=== PATIENT | female | born 1935 | race Asian ===

== ENCOUNTER 2025-01-25 08:05 | Day surgery (SDC) | payer MEDICARE, OTHER ==
[2025-01-24 12:56] LABS: Hematocrit 40.2 % (36.0-46.0); Hemoglobin 13.4 g/dL (12.2-16.2); Mean Corpuscular Hemoglobin 30.4 pg (28.0-32.0); Mean Corpuscular Volume 91.1 fL (80.0-100.0); Nucleated Red Blood Cells % 0.1 %
[2025-01-24 13:06] LABS: Chloride 106 mmol/L (98-107); Potassium 4.5 mmol/L (3.5-5.1); Sodium 143 mmol/L (136-145)
[2025-01-24 13:07] LABS: Anion Gap 11 (5-15); Carbon Dioxide 26 mmol/L (20-31)
[2025-01-24 13:08] LABS: Calcium 10.1 mg/dL (8.7-10.4)
[2025-01-24 13:13] LABS: BUN/Creatinine Ratio 16.8 (10.0-20.0); Blood Urea Nitrogen 18 mg/dL (9-23)
[2025-01-24 13:14] LABS: Glucose 128 mg/dL (74-106); INR 0.97 (0.9-1.15); Partial Thromboplastin Time 29.0 SEC (24.5-34.5); Prothrombin Time 10.3 sec (9.3-11.8)
[~2025-01-25] VITALS: Ht 147.3 cm; Wt 51.7 kg
[~2025-01-25 08:05] MED LIST: AMLO1TAB22 PO; METO25TA93 PO; PANT40TA2 PO; POM; PRE1T PO; TACR0.1O7 EX
[2025-01-25] MEDS: IOHEXOL 350 MG/ML 100ML IJ ONE (09:04)
[2025-01-25] MEDS: fentaNYL CITRATE 100 MCG/2 ML VL ONE (09:14)
[2025-01-25] MEDS: ANGIOMAX 250 MG VIAL IV ONE (09:14)
[2025-01-25] MEDS: LIDOCAINE 2%HCL (LOCAL ANESTH.) INJ 20ML MDV ONE (09:15)
[2025-01-25] MEDS: MIDAZOLAM HCL 2MG/2ML 2ml VIAL (1mg/ml) ONE (09:15)
[2025-01-25] MEDS: SODIUM CHL 0.9% 50 ML ONE (09:15)
[2025-01-25] MEDS: CLOPIDOGREL BISULFATE 75 MG TAB ONE (10:55)
[2025-01-25] MEDS ORDERED: ASPI-543 PO (11:28)
[2025-01-25] MEDS ORDERED: CLOP75TA28 PO (11:28)
--- NOTE | 2025-01-25 13:29 | DVHOP ---
DATE OF SURGERY: 01/25/2025 PROCEDURES TO BE PERFORMED: * Selective left and right coronary angiography, ventriculogram, right iliac angiography. * Thrombectomy of the left anterior descending artery with shockwave device together with angioplasty with stent placement with a 2.5 x 38 mm [place] Callaway stent into the proximal LAD. * FFR of the circumflex artery, which mounted to be 0.74. Right heart catheterization and patient was deferred at this time since the patient has significant coronary artery disease. After treating the coronary artery disease and managing it first, then we will do a right heart catheterization to see if the valve needs to be evaluated at a later date. Conscious sedation also given. DESCRIPTION OF PROCEDURE: The patient was prepped and draped in sterile condition. 1% Xylocaine was used to anesthetize the right groin. Using Cook needle, the right femoral artery was engaged. Using the Seldinger technique, a 6-Mongolian sheath in the right femoral artery. Using a 6-Mongolian JL4 catheter and a 6-Mongolian JR4 catheter, selective left and right coronary angiography was performed. Using a 6-Mongolian pigtail catheter, ventriculogram was done. Then, the 6-Mongolian diagnostic system was exchanged for a 6-Mongolian interventional system. Using XB 3.5 guide catheter, the left main was cannulated. Using a ChoicePT extra support wire, the LAD lesion was then crossed. It was then initially dilated using a 2.5 x 20 mm Euphora balloon. Then, a 2.5 x 12 mm shockwave thrombectomy catheter was used to dilate the entire length of the proximal LAD. Then, a 2.5 x 38 mm [place] Callaway stent was deployed at 18 atmospheres. There were no complications. The patient tolerated the procedure well. RESULTS: * Left main patent. * Left anterior descending artery had a proximal 90% severely calcified lesion, status post angioplasty with stent placement with less than 10% residual stenosis. Circumflex artery ostium has an 80% narrowing and the obtuse marginal too had a 90% narrowing as well. * Right coronary artery is patent. However, the posterior lateral branch of the RCA has a 90% narrowing. The circumflex and the posterior marginal branch of the RCA will be revascularized in a staged manner. The LAD has been revascularized with stent placement. We will continue to follow patient. Hai Cao MD SA/CLEVE TID: [id number] RECEIPT: [id number]
--- NOTE | 2025-01-25 13:34 | DVHHP ---
ADMIT DATE: 01/25/2025 HISTORY OF PRESENT ILLNESS: The patient is an 89-year-old with a history of increasing shortness of breath. The patient gets extremely tachypneic even walking to the mailbox. Echocardiogram shows the patient to have possible aortic valve stenosis and because of the presentation and because of the sudden onset of the symptoms, it is felt that the patient would benefit from having a left and right heart catheterization to determine whether the patient should need aortic valve replacement and even mitral valve evaluation. PAST MEDICAL HISTORY: She has no significant past medical history other than hypertension and hyperlipidemia. She denies any syncopal episode. Denies any history of MS in the past. Denies any coronary artery disease. SOCIAL HISTORY: No tobacco use. No alcohol use at this time. FAMILY HISTORY: Noncontributory. REVIEW OF SYSTEMS: Denies any fevers, chills, melena, or hematochezia. No history of CVA. No history of seizure disorder. No history of rheumatological disorder. No history of any trauma recently. No history of inflammatory bowel disease or irritable bowel syndrome. PHYSICAL EXAMINATION: VITAL SIGNS: Blood pressure is 134/80, pulse at 80, O2 saturation 98% on room air. HEENT: Pupils are reactive. Funduscopic exam is benign. Sclerae anicteric. Extraocular muscles are intact. NECK: No JVD appreciated. Carotid pulses are 2+ symmetrical. No bruits appreciated. No cervical adenopathy. No supraclavicular adenopathy. Thyroid is within normal limits. PULMONARY: Clear to auscultation. CARDIOVASCULAR: Regular rate without S3, without S4. PMI is nondisplaced. ABDOMEN: Soft, nontender. Normal bowel sounds. Stool guaiac is negative. Liver approximately 5 cm. No epigastric tenderness. No CVA tenderness. EXTREMITIES: 1+ pulses. NEUROLOGIC: The patient is intact as well. ASSESSMENT AND PLAN: Thus, patient with increasing symptoms of shortness of breath, even with minimal exertion, I believe the patient should undergo coronary angiography OTTO including right and left heart catheterization. RECOMMENDATIONS: We will make further recommendations after the above tests are completed. Hai Cao MD SA/EKT TID: [id number] RECEIPT: [id number]
== END 2025-01-25 13:25 | disposition home or self-care (01) ==
LOC: CATH 08:05
PROVIDERS: ATTEND Internal Medicine Cardiovascular Disease
DX: I25.10 Atherosclerotic heart disease of native coronary artery without angina pectoris (principal); R06.02 Shortness of breath; I10 Essential (primary) hypertension; E78.5 Hyperlipidemia, unspecified; Z79.82 Long term (current) use of aspirin; Z79.899 Other long term (current) drug therapy
CPT/HCPCS: 0523T; 36415; 80048; 85025; 85610; 85730; 92972; 92973; 93458; A4649; C1725; C1760; C1769; C1874; C1887; C1894; C9600; J0583; J1644; J2250; J3010; Q9967; 99152; 99153